=== PATIENT | female | born 1940 ===

== ENCOUNTER 2022-04-27 18:27 | Observation (INO) ==
--- NOTE | 2022-04-27 18:44 | Emergency Department Note ---
Abdominal Pain HPI General Chief Complaint: Abdominal Pain Stated Complaint: abdominal pain Time Seen by Provider: 04/27/22 18:38 Source: patient Mode of arrival: ambulatory Limitations: no limitations History of Present Illness HPI Narrative: Narrative: Patient is an 81-year-old female who comes into the emergency department today with continuation of pain that she describes as a stabbing sensation in the left lower quadrant of her abdomen. Patient reports that the pain started approximately 48 hours ago and has slowly increased in intensity. She was seen here in the emergency department yesterday morning. The patient states that she was told had a viral respiratory infection was discharged home. She did not have imaging on her abdomen. She had labs that did not show any leukocytosis. Her [id number] glucose was 210. Her renal function, liver function test and urinalysis were rather unremarkable. She was given IV Zofran, IV fentanyl, and IV Toradol and was feeling much better and therefore did not proceed with the CT. Dr. Colon did not feel that this was warranted and patient was discharged home with a prescription of of Levsin and ondansetron. Related Data Home Medications Medication Instructions Recorded Confirmed cholecalciferol (vitamin D3) 125 See Rx Instructions PO .COMPLEX 08/25/19 04/22/22 mcg (5,000 unit) capsule cranberry extract 2 tab PO QDAY 08/25/19 04/22/22 acetaminophen 500 mg PO PRN PRN PAIN 09/08/19 04/22/22 PreserVision AREDS 1 tab PO BID 01/15/21 04/22/22 Previous Rx's Medication Instructions Recorded furosemide 20 mg tablet (Lasix) 20 mg PO QAM #30 tabs 04/10/21 potassium chloride 10 mEq 10 meq PO QDAY #30 tabs 04/10/21 tablet,extended release incontinence pad, liner, disp #200 ea 07/17/21 methimazole 10 mg tablet 5 mg PO QDAY #90 tabs 11/08/21 rosuvastatin 20 mg tablet 20 mg PO QDAY #90 tabs 12/03/21 pantoprazole 40 mg tablet,delayed 40 mg PO QDAY #90 tabs 12/07/21 release apixaban 2.5 mg tablet (Eliquis) 2.5 mg PO BID #180 tabs 01/09/22 methenamine hippurate 1 gram tablet 1 g PO HS #90 tabs 01/09/22 metoprolol tartrate 25 mg tablet 25 mg PO BID #180 tabs 01/09/22 metformin 500 mg tablet 500 mg PO BID #180 tabs 01/14/22 lisinopril 20 mg tablet 20 mg PO BID #180 tabs 01/18/22 ciprofloxacin 0.3 %-dexamethasone 4 drp otic (ear) BID 7 days #7.5 mL 04/22/22 0.1 % ear drops,suspension (Ciprodex) memantine 5 mg tablet 5 mg PO QAM #90 tabs 04/22/22 hyoscyamine sulfate 0.125 mg 0.125 mg PO QID PRN dyspepsia #20 04/26/22 tablet (Levsin) tabs ondansetron 4 mg disintegrating 4 mg PO Q6H PRN nausea and 04/26/22 tablet vomiting #20 tabs Allergies Allergy/AdvReac Type Severity Reaction Status Date / Time lidocaine Allergy Intermediate itch Verified 04/22/22 09:19 Penicillins Allergy Unknown unknown Verified 04/22/22 09:19 Sulfa (Sulfonamide Allergy Unknown Nausea Verified 04/22/22 09:19 Antibiotics) Review of Systems ROS ROS Narrative: Narrative: All systems ED: reviewed and negative except as stated. [facility] Narrative Patient History Narrative: Narrative: Medical/Surgical/Family History All Active Problems (Updated 04/27/22 @ 21:57 by JUAN Phelps) Urinary tract infection (Chronic) Acid reflux (Chronic) Arthritis (Chronic) History of blood clots (Chronic) Depression (Chronic) Diabetes mellitus, type II (Chronic) Gout (Chronic) Gallbladder problem (Chronic) Heart trouble (Chronic) High blood pressure (Chronic) Insomnia (Chronic) Joint pain (Chronic) Stomach ulcer (Chronic) History of knee replacement (Chronic ~1995) History of tonsillectomy (Chronic ~1942) History of cholecystectomy (Chronic ~2000) History of shoulder surgery (Chronic ~1999) History of right hip replacement (Chronic ~2005) History of back surgery (Chronic ~1999) History of surgery (Chronic) Thyrotoxicosis (Acute) Paroxysmal atrial fibrillation (Acute) DVT (deep venous thrombosis) (Acute ~08/2011) History of left cataract surgery (Acute ~02/2016) skilled nursing current use of anticoagulant (Acute) Hypertensive heart and chronic kidney disease with heart failure and stage 1 through stage 4 chronic kidney disease, or chronic kidney disease (Acute) Chronic systolic (congestive) heart failure (Acute) Chronic kidney disease, stage 3 (Acute) Nonexudative age-related macular degeneration, bilateral, stage unspecified (Acute) Other polyosteoarthritis (Acute) Adjustment disorder with depressed mood (Acute) Familial hypercholesterolemia (Acute) Repeated falls (Acute) Type 2 diabetes mellitus with diabetic polyneuropathy (Acute) Frequency of micturition (Acute) Abnormal weight loss (Acute) skilled nursing (current) use of oral hypoglycemic drugs (Acute) Patient's noncompliance with other medical treatment and regimen (Acute) Essential hypertension, benign (Acute) Other intra-abdominal and pelvic swelling, mass and lump (Acute) 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 (Acute) Other disorders of retroperitoneum (Acute) Unspecified ovarian cyst, right side (Acute) Major depressive disorder, recurrent, mild (Acute) Dry senile macular degeneration (Acute) Other seborrheic dermatitis (Acute) Recurrent UTI (urinary tract infection) (Acute) Headache (Acute) Osteoarthrosis involving multiple sites (Acute) Right hip pain (Acute) Left ankle effusion (Acute) Screening due (Acute) Screening declined by patient (Acute) HLD (hyperlipidemia) (Acute) RUQ abdominal pain (Acute) Excessive cerumen in both ear canals (Acute) Hip pain, right (Acute) Contusion of hip, right (Acute) Duodenal ulcer (Acute) Thrush (Acute) Cellulitis and abscess of foot (Acute) Hypertrophic toenail (Acute) Polyuria (Acute) Chronic UTI (Acute) Overactive bladder (Acute) Urinary incontinence (Acute) Bronchitis (Acute) Memory loss (Acute) Right otitis externa (Acute) Abdominal pain (Acute) Hypertensive crisis (Acute) Left ureteral stone (Acute) Left flank pain (Acute) Bilateral hydronephrosis (Acute) Urinary retention (Acute) Acute on chronic renal failure (Acute) Urolithiasis (Acute) Acute and chronic respiratory failure (Acute) Acute urinary retention (Acute) Medical History Abnormal weight loss Acid reflux Adjustment disorder with depressed mood Arthritis Chronic kidney disease, stage 3 Chronic systolic (congestive) heart failure Depression Diabetes mellitus, type II Dry senile macular degeneration DVT (deep venous thrombosis) (~08/2011) Essential hypertension, benign Familial hypercholesterolemia Frequency of micturition Gallbladder problem Gout Headache Heart trouble High blood pressure History of blood clots leg Hypertensive heart and chronic kidney disease with heart failure and stage 1 through stage 4 chronic kidney disease, or chronic kidney disease Hypertrophic toenail Insomnia Joint pain skilled nursing (current) 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 Major depressive disorder, recurrent, 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, bilateral, stage unspecified Osteoarthrosis involving multiple sites Other disorders of retroperitoneum Other intra-abdominal and pelvic swelling, mass and lump Other polyosteoarthritis Other seborrheic dermatitis Paroxysmal atrial fibrillation Patient's noncompliance with other medical treatment and regimen Recurrent UTI (urinary tract infection) Repeated falls Right hip pain Stomach ulcer Thyrotoxicosis Type 2 diabetes mellitus with diabetic polyneuropathy Unspecified ovarian cyst, right side Surgical History History of back surgery (~1999) x3 cages History of cholecystectomy (~2000) History of knee replacement (~1995) History of left cataract surgery (~02/2016) History of right hip replacement (~2005) History of shoulder surgery (~1999) History of surgery apron removal of 28 lbs from a 160 lbs weight loss History of tonsillectomy (~1943) Family History Father Arthritis Aunt Cancer Mother Debo Gehrig's disease Social History Smoking Status: Never smoker Alcohol Intake Frequency: does not drink Substance Use: does not use Exam Narrative Narrative: Narrative: General Limitations: no limitations General appearance: Present alert and in no apparent distress Eye Eye: Present normal appearance; Absent scleral icterus ENT ENT: Present normal oropharynx and mucous membranes moist Chest Chest: Present symmetric chest wall rise Respiratory Respiratory: Present normal lung sounds bilaterally; Absent respiratory distress, rales/crackles, wheezes or accessory muscle use Cardiovascular Cardiovascular: Present regular rate, normal rhythm and normal heart sounds Adbominal Abdominal: Present soft, tenderness (Moderate tenderness with palpation in the left lower quadrant. ) and normal bowel sounds; Absent distention, rebound, rigidity, mass or hernia Extremities Extremities: Present normal inspection and normal capillary refill Neurological Neurological: Present alert and oriented X3 Skin Skin: Present warm (WNL), dry and normal color Course Vital Signs Vital signs: Vital Signs Temperature 97.1 F 04/27/22 18:28 Pulse Rate 71 04/27/22 18:28 Respiratory Rate 16 04/27/22 18:28 Blood Pressure 229/90 04/27/22 18:28 Pulse Oximetry (%) 96 04/27/22 18:28 Oxygen Delivery Method Room Air 04/27/22 18:28 Temperature 98.6 F 04/27/22 19:18 Pulse Rate 88 04/27/22 20:01 Respiratory Rate 16 04/27/22 18:28 Blood Pressure 234/92 04/27/22 20:01 Pulse Oximetry (%) 94 04/27/22 20:01 Oxygen Delivery Method Room Air 04/27/22 19:53 MDM MDM Narrative Medical decision making narrative: Narrative: Patient is an 81-year-old female who returned to the emergency department today with worsening left lower quadrant abdominal pain. She was seen in the emergency department yesterday. Repeated CBC, [id number] chemistry panel, urine dipstick, hepatic panel. Her renal function has changed and today her creatinine increased to 2.3 with BUN of 24. This may be related to dehydration, and she was given 1 L of IV normal saline with a repeat [id number] creatinine was ordered and shows a creatinine of 2.1 with BUN 23. The radiologist did not want to proceed with contrast today and reports that he would be able to CT abdomen pelvis without contrast to evaluate for potential diverticulitis, urolithiasis, SBO. Patient's urine dipstick shows large amount of blood, large leukocytes, and 1+ protein. Her specific gravity 1.020. This does not particularly like it is infected urine and may be be not a clean-catch specimen today. Urine was sent for culture. Patient was given 0.5 mg IV Dilaudid for pain, 4 mg of ondansetron for nausea, and 1 L of IV normal saline for hydration today. Patient CBC does not show any leukocytosis or anemia. Her blood pressure is elevated 230s over 100 and was sustained. Proceed with 20 mg of IV hydralazine today for her hypertension. Patient's repeat blood pressure was 147/81 with pulse of 90. Patient did have an episode of vomiting after receiving the 4 mg of IV ondansetron today. She was given 5 mg of IV Reglan as she continued to have the nausea with 1 episode of vomiting of yellow emesis today. This did help with her nausea some. Patient's CT abdomen pelvis without IV contrast preliminary report today shows the bladder is markedly distended. There is mild bilateral hydroureteronephrosi s secondary to distended urinary bladder. There are benign bladder diverticula. A prevoid bladder scan was done today and that reveals 890 cc of urine. Postvoid bladder scan today shows 900 after she had voided approximately 100 mL of urine. The CT scan also identifies the left distal ureter at the level of the UVJ contains layering calculi. The UVJ calculus measures 4 x 9 mm and may be parti ally obstructing. Patient was still having pain today and proceeded with 15 mg of IV Toradol which helped reduce patient's pain down to a 5 out of 10 on a 0-10 numerical pain scale. Was able to consult today with Dr. Mesa who is on-call for urology today. Dr. Mesa recommended proceeding with Lnog catheter and he was able to review imaging today of the CT scan. Dr. Mesa reports that patient has a very large right ovarian cyst that appears to be enlarged from prior imaging and this may be related to patient's bladder distention rather than urine in the bladder. The Long catheter was placed and had small amount of urine that was slightly draining but did not have large amount of urine to the BSU today. Dr. Mesa felt that the best plan for this patient would be to admit today to [facility]. Dr. Mesa was able to speak with hospitalist, Dr. Hanna and then Dr. Mesa return phone call to me indicating that Dr. Hanna would consult with patient by Dr. Mesa would be admitting the patient today and anticipate going to the OR tomorrow morning at 9 AM. Patient will be n.p.o. today at midnight. Lab Data 04/27/22 19:10 Labs: Lab Results 04/27/22 04/27/22 04/27/22 Range/Units 18:52 19:10 19:10 WBC 10.4 (4.5-11.0) K/mcL RBC 4.74 (3.59-5.38) M/mcL Hgb 14.0 (11.2-15.7) g/dL Hct 43.1 (34.1-44.9) % POC Hct (36-48) MCV 90.9 (80.0-100.0) fL MCH 29.5 (26.0-34.0) pg MCHC 32.5 (31.0-36.0) g/dL RDW 13.9 (11.5-14.5) % Plt Count 143 (140-440) K/mcL MPV 12.8 H (8.8-12.5) fL Immature Gran % (Auto) 0.3 (0.0-0.5) % Neut % (Auto) 64.7 (38.0-78.0) % Lymph % (Auto) 17.1 (15.5-49.0) % [place] % (Auto) 6.8 (1.0-12.0) % Eos % (Auto) 10.4 H (0.0-7.0) % Baso % (Auto) 0.7 (0.0-2.0) % Lymph # (Auto) 1.77 (1.50-4.80) K/mcL [place] # (Auto) 0.71 (0.10-0.90) K/mcL Eos # (Auto) 1.08 H (0.00-0.70) K/mcL Baso # (Auto) 0.07 (0.00-0.30) K/mcL Immature Gran # 0.03 (0.00-0.05) K/mcl Absolute Neutrophils 6.71 (1.80-8.00) K/mcL POC Sodium (133-145) POC Potassium (3.3-5.1) POC Chloride (96-108) POC Total CO2 (22-30) POC BUN (6-20) POC Creatinine (0.6-1.2) POC Glucose (70-105) POC WB Ioniz Calcium (1.16-1.32) Total Bilirubin 0.8 (0.1-1.0) mg/dL Direct Bilirubin 0.2 (<0.3) mg/dL AST 19 (<32) U/L ALT 17 (<40) U/L Alkaline Phosphatase 92 (39-117) U/L Total Protein 6.6 (5.9-8.4) gm/dL Albumin 3.7 (3.2-5.2) gm/dL Globulin 2.9 (2.2-3.7) gm/dL Urine Color Straw Urine Appearance Hazy A (Clear) Urine pH 7.0 (5.0-9.0) Ur Specific [place] 1.008 (1.000-1.035) Urine Protein 30 A (Negative) mg/dL Urine Glucose (UA) Negative (Negative) mg/dL Urine Ketones Negative (Negative) mg/dL Urine Occult Blood >=1.0 A (Negative) mg/dL Urine Nitrate Negative (Negative) Urine Bilirubin Negative (Negative) mg/dL Urine Urobilinogen Negative mg/dL Ur Leukocyte Esterase 500 A (Negative) /uL Urine RBC > 182 H (0-1) /hpf Urine WBC 53 H (0-4) /hpf Ur Squamous Epith Cells 1 (0-4) /hpf Urine Bacteria None (0) /hpf Urine Mucus Few A (None) /hpf Ur Culture Indicated? yes 04/27/22 04/27/22 04/27/22 Range/Units 19:15 20:43 20:47 WBC (4.5-11.0) K/mcL RBC (3.59-5.38) M/mcL Hgb (11.2-15.7) g/dL Hct (34.1-44.9) % POC Hct 43.0 42.0 (36-48) MCV (80.0-100.0) fL MCH (26.0-34.0) pg MCHC (31.0-36.0) g/dL RDW (11.5-14.5) % Plt Count (140-440) K/mcL MPV (8.8-12.5) fL Immature Gran % (Auto) (0.0-0.5) % Neut % (Auto) (38.0-78.0) % Lymph % (Auto) (15.5-49.0) % [place] % (Auto) (1.0-12.0) % Eos % (Auto) (0.0-7.0) % Baso % (Auto) (0.0-2.0) % Lymph # (Auto) (1.50-4.80) K/mcL [place] # (Auto) (0.10-0.90) K/mcL Eos # (Auto) (0.00-0.70) K/mcL Baso # (Auto) (0.00-0.30) K/mcL Immature Gran # (0.00-0.05) K/mcl Absolute Neutrophils (1.80-8.00) K/mcL POC Sodium 138 140 (133-145) POC Potassium 4.2 3.8 (3.3-5.1) POC Chloride 101 104 (96-108) POC Total CO2 26.0 22.0 (22-30) POC BUN 24 H 23 H (6-20) POC Creatinine 2.3 H 2.0 H 2.1 H (0.6-1.2) POC Glucose 156 H 198 H (70-105) POC WB Ioniz Calcium 1.12 L 1.12 L (1.16-1.32) Total Bilirubin (0.1-1.0) mg/dL Direct Bilirubin (<0.3) mg/dL AST (<32) U/L ALT (<40) U/L Alkaline Phosphatase (39-117) U/L Total Protein (5.9-8.4) gm/dL Albumin (3.2-5.2) gm/dL Globulin (2.2-3.7) gm/dL Urine Color Urine Appearance (Clear) Urine pH (5.0-9.0) Ur Specific [place] (1.000-1.035) Urine Protein (Negative) mg/dL Urine Glucose (UA) (Negative) mg/dL Urine Ketones (Negative) mg/dL Urine Occult Blood (Negative) mg/dL Urine Nitrate (Negative) Urine Bilirubin (Negative) mg/dL Urine Urobilinogen mg/dL Ur Leukocyte Esterase (Negative) /uL Urine RBC (0-1) /hpf Urine WBC (0-4) /hpf Ur Squamous Epith Cells (0-4) /hpf Urine Bacteria (0) /hpf Urine Mucus (None) /hpf Ur Culture Indicated? ED POC Tests ED POC Tests: JC - Influenza A Negative JC - Influenza B Negative JC - SARS Antigen Negative Discharge Plan Patient/Caregiver Discharge Instructions Pt seen by CRYPTOLOGIST/PA only: No Clinical Impression: Urolithiasis, Acute and chronic respiratory failure, Acute urinary retention Patient Disposition: Xfer As Outpt/Obs ([facility]) Follow up with: Jacob Jacobs DO [Primary Care Provider] - Prescriptions: No Action furosemide [Lasix] 20 mg tablet 20 mg PO QAM Qty: 30 0RF potassium chloride 10 mEq tablet extended release 10 meq PO QDAY Qty: 30 0RF methimazole 10 mg tablet 5 mg PO QDAY Qty: 90 1RF rosuvastatin 20 mg tablet 20 mg PO QDAY Qty: 90 1RF pantoprazole 40 mg tablet,delayed release (DR/EC) 40 mg PO QDAY Qty: 90 3RF Eliquis 2.5 mg tablet 2.5 mg PO BID Qty: 180 1RF metoprolol tartrate 25 mg tablet 25 mg PO BID Qty: 180 1RF methenamine hippurate 1 gram tablet 1 g PO HS Qty: 90 1RF metformin 500 mg tablet 500 mg PO BID Qty: 180 1RF lisinopril 20 mg tablet 20 mg PO BID Qty: 180 1RF acetaminophen 500 mg PO PRN PRN (Reason: PAIN) cholecalciferol (vitamin D3) 125 mcg (5,000 unit) capsule See Rx Instructions PO .COMPLEX Rx Instructions: PO; cranberry extract 2 tab PO QDAY (DME) incontinence pad, liner, disp Pad See Rx Instructions .Route Qty: 200 3RF Rx Instructions: As directed ciprofloxacin-dexamethasone [Ciprodex] 0.3-0.1 % drops,suspension 4 drp otic (ear) BID 7 Days Qty: 7.5 0RF memantine 5 mg tablet 5 mg PO QAM Qty: 90 3RF PreserVision AREDS 1 tab PO BID hyoscyamine sulfate [Levsin] 0.125 mg tablet 0.125 mg PO QID PRN (Reason: dyspepsia) Qty: 20 0RF ondansetron 4 mg tablet,disintegrating 4 mg PO Q6H PRN (Reason: nausea and vomiting) Qty: 20 0RF
[2022-04-27] MEDS ORDERED: HYDROmorphone 0.5 MG/0.5 ML SYRINGE IV ONE (19:15)
[2022-04-27 19:20] LABS: POC Calcium, Ionized 1.12 (1.16-1.32); POC Creatinine 2.3 (0.6-1.2); POC Potassium 4.2 (3.3-5.1)
[2022-04-27] MEDS ORDERED: 0.9 % SODIUM CHLORIDE 1,000 ML IV ONE (19:21)
[2022-04-27] MEDS ORDERED: ONDANSETRON 4 MG/2 ML VIAL IV ONE (19:25)
[2022-04-27] MEDS ORDERED: hydrALAZINE 20 MG/ML VIAL IV ONE (19:53)
[2022-04-27 20:03] LABS: Basophils # (Auto) 0.07 K/mcL (0.00-0.30); Basophils % (Auto) 0.7 % (0.0-2.0); Eosinophils # (Auto) 1.08 K/mcL (0.00-0.70); Eosinophils % (Auto) 10.4 % (0.0-7.0); Hematocrit 43.1 % (34.1-44.9); Lymphocytes # (Auto) 1.77 K/mcL (1.50-4.80); Lymphocytes % (Auto) 17.1 % (15.5-49.0); Mean Cell Volume 90.9 fL (80.0-100.0); Mean Corpuscular HGB Conc 32.5 g/dL (31.0-36.0); Mean Platelet Volume 12.8 fL (8.8-12.5); Monocytes # (Auto) 0.71 K/mcL (0.10-0.90); Monocytes % (Auto) 6.8 % (1.0-12.0); Neutrophils % (Auto) 64.7 % (38.0-78.0); Platelet Count 143 K/mcL (140-440); RBC 4.74 M/mcL (3.59-5.38); Red Cell Distribution Width 13.9 % (11.5-14.5); WBC 10.4 K/mcL (4.5-11.0)
[2022-04-27 20:19] LABS: ALT/SGPT 17 U/L (<40); AST/SGOT 19 U/L (<32); Albumin 3.7 gm/dL (3.2-5.2); Alkaline Phosphatase 92 U/L (39-117); Bilirubin,Direct 0.2 mg/dL (<0.3); Bilirubin,Total 0.8 mg/dL (0.1-1.0); Globulin 2.9 gm/dL (2.2-3.7)
[2022-04-27] MEDS ORDERED: METOCLOPRAMIDE 10 MG/2 ML VIAL IV ONE (20:24)
[2022-04-27 20:32] LABS: Appearance,Urine HAZY (Clear); Bilirubin,Urine Negative (Negative); Color,Urine STRAW; Culture Indicated,Urine yes; Glucose,Urine (UA) Negative (Negative); Ketones,Urine Negative (Negative); Leukocyte Esterase,Urine 500 /uL (Negative); Mucus,Urine FEW /hpf; Nitrate,Urine Negative (Negative); Protein,Urine 30 mg/dL (Negative); Specific Gravity,Urine 1.008 (1.000-1.035); Urine Blood >=1.0 mg/dL (Negative); Urine RBC > 182 /hpf (0-1); Urine Squamous Epithelial Cell 1 /hpf (0-4); Urine WBC 53 /hpf (0-4); Urobilinogen,Urine Negative
[2022-04-27] MEDS ORDERED: KETOROLAC 30 MG/ML VIAL IV ONE (20:47)
[2022-04-27 20:48] LABS: POC Calcium, Ionized 1.12 (1.16-1.32); POC Potassium 3.8 (3.3-5.1)
[2022-04-27] MEDS ORDERED: MAGNESIUM HYDROXIDE 30 ML ORAL.SUSP PO PRN (21:47)
[2022-04-27] MEDS ORDERED: ONDANSETRON 4 MG/2 ML VIAL IV PRN (21:47)
[2022-04-27] MEDS ORDERED: oxyCODONE/APAP 5/325MG TABLET PO PRN (21:47)
--- NOTE | 2022-04-27 21:53 | Internal Medicine Consult Note ---
HPI Date of Consult Consult Date: 04/28/22 Primary Care Provider: Jacob Jacobs DO Consult Narrative History of present illness: Virginia Stahl 81 year old female with a history of hypertension, type 2 diabetes mellitus, CKD stage 3, chronic systolic heart failure, paroxysmal atrial fibrillation, DVT per chart review, hyperthyroidism, depression, GERD, ovarial cysts presented to the ED for persistent lower abdominal pain and found to have a large ovarian cyst, distal left ureteral stones, and urinary retention as well as an acute kidney injury. Urology requested that hospital medicine consult for the patient's multiple medical comorbidities. I saw the patient after he Long catheter had been placed in the emergency department. The patient said that her abdominal pain which was in her left lower quadrant on presentation to the ED had resolved. We discussed the patient's medical comorbidities, she does endorse a history of lower extremity DVT which was probably unprovoked based on her description. Per review of the patient's prior medication list it appears the patient is on low-dose Eliquis. The patient is not familiar with her medications, she lives with her daughter and it sounds like she is mostly independent with her activities of daily living. Review of systems Constitutional: no fever, fatigue, or weight loss Eyes: no vision changes or pain Cardiovascular: no chest pain, no palpitations Respiratory: no cough or dyspnea Gastrointestinal: Resolved left lower quadrant abdominal pain, no nausea, vomiting, or diarrhea Genitourinary: Occasional urinary retention and incontinence Musculoskeletal: no arthralgia or myalgia Integumentary: no skin lesion or wound Neurological: no focal weakness or numbness Psychiatric: no anxiety or depression Physical exam Head: Atraumatic, normal inspection. Eyes: normal appearance, no scleral icterus. Neck: full ROM Respiratory: no respiratory distress. Cardiovascular: normal rate GI/Abdominal: soft, nontender, no guarding. : Indwelling Long catheter present. Extremities: full range of motion, nontender. Neurological: CN II-XII intact, intact motor, intact sensation. Psychiatric: normal mood. Skin: warm, normal color cc:: CC: PFSH PFSH All Active Problems Urinary tract infection (Chronic) Acid reflux (Chronic) Arthritis (Chronic) History of blood clots (Chronic) Depression (Chronic) Diabetes mellitus, type II (Chronic) Gout (Chronic) Gallbladder problem (Chronic) Heart trouble (Chronic) High blood pressure (Chronic) Insomnia (Chronic) Joint pain (Chronic) Stomach ulcer (Chronic) History of knee replacement (Chronic ~1995) History of tonsillectomy (Chronic ~194) History of cholecystectomy (Chronic ~2000) History of shoulder surgery (Chronic ~1999) History of right hip replacement (Chronic ~2005) History of back surgery (Chronic ~1999) History of surgery (Chronic) Thyrotoxicosis (Acute) Paroxysmal atrial fibrillation (Acute) DVT (deep venous thrombosis) (Acute ~08/2011) History of left cataract surgery (Acute ~02/2016) grape grower current use of anticoagulant (Acute) Hypertensive heart and chronic kidney disease with heart failure and stage 1 through stage 4 chronic kidney disease, or chronic kidney disease (Acute) Chronic systolic (congestive) heart failure (Acute) Chronic kidney disease, stage 3 (Acute) Nonexudative age-related macular degeneration, bilateral, stage unspecified (Acute) Other polyosteoarthritis (Acute) Adjustment disorder with depressed mood (Acute) Familial hypercholesterolemia (Acute) Repeated falls (Acute) Type 2 diabetes mellitus with diabetic polyneuropathy (Acute) Frequency of micturition (Acute) Abnormal weight loss (Acute) 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 (Acute) Patient's noncompliance with other medical treatment and regimen (Acute) Essential hypertension, benign (Acute) Other intra-abdominal and pelvic swelling, mass and lump (Acute) 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 (Acute) Other disorders of retroperitoneum (Acute) Unspecified ovarian cyst, right side (Acute) Major depressive disorder, recurrent, mild (Acute) Dry senile macular degeneration (Acute) Other seborrheic dermatitis (Acute) Recurrent UTI (urinary tract infection) (Acute) Headache (Acute) Osteoarthrosis involving multiple sites (Acute) Right hip pain (Acute) Left ankle effusion (Acute) Screening due (Acute) Screening declined by patient (Acute) HLD (hyperlipidemia) (Acute) RUQ abdominal pain (Acute) Excessive cerumen in both ear canals (Acute) Hip pain, right (Acute) Contusion of hip, right (Acute) Duodenal ulcer (Acute) Thrush (Acute) Cellulitis and abscess of foot (Acute) Hypertrophic toenail (Acute) Polyuria (Acute) Chronic UTI (Acute) Overactive bladder (Acute) Urinary incontinence (Acute) Bronchitis (Acute) Memory loss (Acute) Right otitis externa (Acute) Abdominal pain (Acute) Hypertensive crisis (Acute) Left ureteral stone (Acute) Left flank pain (Acute) Bilateral hydronephrosis (Acute) Urinary retention (Acute) Acute on chronic renal failure (Acute) Urolithiasis (Acute) Acute and chronic respiratory failure (Acute) Acute urinary retention (Acute) Medical History Abnormal weight loss Acid reflux Adjustment disorder with depressed mood Arthritis Chronic kidney disease, stage 3 Chronic systolic (congestive) heart failure Depression Diabetes mellitus, type II Dry senile macular degeneration DVT (deep venous thrombosis) (~08/2011) Essential hypertension, benign Familial hypercholesterolemia Frequency of micturition Gallbladder problem Gout Headache Heart trouble High blood pressure History of blood clots leg Hypertensive heart and chronic kidney disease with heart failure and stage 1 through stage 4 chronic kidney disease, or chronic kidney disease Hypertrophic toenail Insomnia Joint pain 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 [facility] current use of anticoagulant Major depressive disorder, recurrent, 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, bilateral, stage unspecified Osteoarthrosis involving multiple sites Other disorders of retroperitoneum Other intra-abdominal and pelvic swelling, mass and lump Other polyosteoarthritis Other seborrheic dermatitis Paroxysmal atrial fibrillation Patient's noncompliance with other medical treatment and regimen Recurrent UTI (urinary tract infection) Repeated falls Right hip pain Stomach ulcer Thyrotoxicosis Type 2 diabetes mellitus with diabetic polyneuropathy Unspecified ovarian cyst, right side Surgical History History of back surgery (~1999) x3 cages History of cholecystectomy (~2000) History of knee replacement (~1995) History of left cataract surgery (~02/2016) History of right hip replacement (~2005) History of shoulder surgery (~1999) History of surgery apron removal of 28 lbs from a 160 lbs weight loss History of tonsillectomy (~1943) Family History Father Arthritis Aunt Cancer Mother Debo Gehrig's disease Social History marital status: occupational status: retired smoking status: Never smoker alcohol intake frequency: does not drink substance use type: does not use MEDS/ALLERGIES Home Medications and Allergies Home Medications Medication Instructions Recorded Confirmed Type cholecalciferol (vitamin D3) 125 See Rx Instructions PO .COMPLEX 08/25/19 04/22/22 History mcg (5,000 unit) capsule cranberry extract 2 tab PO QDAY 08/25/19 04/22/22 History acetaminophen 500 mg PO PRN PRN PAIN 09/08/19 04/22/22 History PreserVision AREDS 1 tab PO BID 01/15/21 04/22/22 History furosemide 20 mg tablet (Lasix) 20 mg PO QAM #30 tabs 04/10/21 04/22/22 Rx potassium chloride 10 mEq 10 meq PO QDAY #30 tabs 04/10/21 04/22/22 Rx tablet,extended release incontinence pad, liner, disp #200 ea 07/17/21 04/22/22 Rx methimazole 10 mg tablet 5 mg PO QDAY #90 tabs 11/08/21 04/22/22 Rx rosuvastatin 20 mg tablet 20 mg PO QDAY #90 tabs 12/03/21 04/22/22 Rx pantoprazole 40 mg tablet,delayed 40 mg PO QDAY #90 tabs 12/07/21 04/22/22 Rx release apixaban 2.5 mg tablet (Eliquis) 2.5 mg PO BID #180 tabs 01/09/22 04/22/22 Rx methenamine hippurate 1 gram tablet 1 g PO HS #90 tabs 01/09/22 04/22/22 Rx metoprolol tartrate 25 mg tablet 25 mg PO BID #180 tabs 01/09/22 04/22/22 Rx metformin 500 mg tablet 500 mg PO BID #180 tabs 01/14/22 04/22/22 Rx lisinopril 20 mg tablet 20 mg PO BID #180 tabs 01/18/22 04/22/22 Rx ciprofloxacin 0.3 %-dexamethasone 4 drp otic (ear) BID 7 days #7.5 mL 04/22/22 04/22/22 Rx 0.1 % ear drops,suspension (Ciprodex) memantine 5 mg tablet 5 mg PO QAM #90 tabs 04/22/22 04/22/22 Rx hyoscyamine sulfate 0.125 mg 0.125 mg PO QID PRN dyspepsia #20 04/26/22 Rx tablet (Levsin) tabs ondansetron 4 mg disintegrating 4 mg PO Q6H PRN nausea and 04/26/22 Rx tablet vomiting #20 tabs Allergies Allergy/AdvReac Type Severity Reaction Status Date / Time Penicillins Allergy Unknown unknown Verified 04/22/22 09:19 lidocaine AdvReac Mild Itching Verified 04/28/22 07:32 Sulfa (Sulfonamide AdvReac Mild Nausea Verified 04/28/22 07:32 Antibiotics) EXAM Constitutional Vitals: Temp Pulse Resp BP Pulse Ox O2 Del Method 98.6 F 91 H 16 147/81 92 Room Air 04/27/22 19:18 04/27/22 21:41 04/27/22 18:28 04/27/22 20:34 04/27/22 21:41 04/27/22 19:53 DATA Data Completed and Pending Labs: Labs from last 24 hours 04/27/22 04/27/22 04/27/22 20:47 20:43 19:15 WBC RBC Hgb Hct POC Hct 42.0 43.0 MCV MCH MCHC RDW Plt Count MPV Immature Gran % (Auto) Neut % (Auto) Lymph % (Auto) Mclean % (Auto) Eos % (Auto) Baso % (Auto) Lymph # (Auto) Mclean # (Auto) Eos # (Auto) Baso # (Auto) Immature Gran # Absolute Neutrophils POC Sodium 140 138 POC Potassium 3.8 4.2 POC Chloride 104 101 POC Total CO2 22.0 26.0 POC BUN 23 H 24 H POC Creatinine 2.1 H 2.0 H 2.3 H POC Glucose 198 H 156 H POC WB Ioniz Calcium 1.12 L 1.12 L Total Bilirubin Direct Bilirubin AST ALT Alkaline Phosphatase Total Protein Albumin Globulin Urine Color Urine Appearance Urine pH Ur Specific [place] Urine Protein Urine Glucose (UA) Urine Ketones Urine Occult Blood Urine Nitrate Urine Bilirubin Urine Urobilinogen Ur Leukocyte Esterase Urine RBC Urine WBC Ur Squamous Epith Cells Urine Bacteria Urine Mucus Ur Culture Indicated? 04/27/22 04/27/22 04/27/22 19:10 19:10 18:52 WBC 10.4 RBC 4.74 Hgb 14.0 Hct 43.1 POC Hct MCV 90.9 MCH 29.5 MCHC 32.5 RDW 13.9 Plt Count 143 MPV 12.8 H Immature Gran % (Auto) 0.3 Neut % (Auto) 64.7 Lymph % (Auto) 17.1 Mclean % (Auto) 6.8 Eos % (Auto) 10.4 H Baso % (Auto) 0.7 Lymph # (Auto) 1.77 Mclean # (Auto) 0.71 Eos # (Auto) 1.08 H Baso # (Auto) 0.07 Immature Gran # 0.03 Absolute Neutrophils 6.71 POC Sodium POC Potassium POC Chloride POC Total CO2 POC BUN POC Creatinine POC Glucose POC WB Ioniz Calcium Total Bilirubin 0.8 Direct Bilirubin 0.2 AST 19 ALT 17 Alkaline Phosphatase 92 Total Protein 6.6 Albumin 3.7 Globulin 2.9 Urine Color Straw Urine Appearance Hazy A Urine pH 7.0 Ur Specific [place] 1.008 Urine Protein 30 A Urine Glucose (UA) Negative Urine Ketones Negative Urine Occult Blood >=1.0 A Urine Nitrate Negative Urine Bilirubin Negative Urine Urobilinogen Negative Ur Leukocyte Esterase 500 A Urine RBC > 182 H Urine WBC 53 H Ur Squamous Epith Cells 1 Urine Bacteria None Urine Mucus Few A Ur Culture Indicated? yes A/P Narrative A/P Narrative: Assessment: 81 year old female with a history of hypertension, type 2 diabetes mellitus, CKD stage 3, chronic systolic heart failure, paroxysmal atrial fibrillation, DVT per chart review, hyperthyroidism, depression, GERD, ovarial cysts presented to the ED for persistent lower abdominal pain and found to have a large ovarian cyst, distal left ureteral stones, and urinary retention as well as an acute kidney injury. Urology requested that hospital medicine consult for the patient's multiple medical comorbidities. #Left lower abdominal pain likely due to either left distal ureteral stones versus less likely large ovarian/mesenteric cyst (interval enlargement since 2020) -Pain resolved after Long catheter placed in the ED. #Acute on chronic kidney disease stage 3 injury #Left moderate hydronephrosis and hydroureter #Hypertension #Type 2 diabetes mellitus #Paroxysmal atrial fibrillation #Chronic systolic heart failure #Coronary artery disease #Hyperlipidemia #History of DVT #History of hyperthyroidism #Depression #GERD Plan -Urology admitting the patient, planning for procedures in the morning. -Hospital medicine consulted for the patient's medical comorbidities. -Long catheter placement in the ED. -IV fluid for RIMA, monitor renal function and urine output. -Monitor volume status closely given history heart failure. -Start Norvasc 5 mg daily, hold EVANGELISTA-I for now for RIMA. -Labetalol and Hydralazine for SBP>190 or DBP>100. -Scheduled tylenol IV and prn opioids, avoid NSAIDs due to renal failure. -Correction humalog SSI, start at low dose. -Home medication reconciliation w/ pharmacy, continue essential medications. -NPO for now pending possible procedures. -DVT prophylaxis: Eliquis (if taking for afib), otherwise heparin SQ. -CODE STATUS: DNR/DNI Time Spent With Patient Time: Total time spent is greater than 50% in coordination of care (as documented) at patient's floor/unit and/or counseling patient:
--- NOTE | 2022-04-27 21:58 | Urology History & Physical ---
HPI History of Present Illness Patient information: Note initiated : 04/27/22 at 9:57 pm Service Date, if different from initiated Date: [] Patient: Virginia Stahl 81 y/o F admitted on for abdominal pain. Chief Complaint: [Left flank pain, left ureteral stone, bilateral hydronephrosis] Chief complaint: Left flank pain, left ureteral stone, bilateral hydronephrosis History of present illness: Virginia is an 81-year-old woman with a long history of abdominal pain. She initially presented to the emergency room yesterday with complaints of abdominal and the new onset of left flank pain. She was evaluated and discharged to home after being told that she had a viral GI infection. She represented to the emergency department today with similar complaints. Her abdominal and left flank pain persisted. Today her renal function appears to be worse. No imaging was obtained yesterday. A noncontrast CT scan of the abdomen and pelvis was obtained today which I personally reviewed. It shows an extremely large right ovarian cyst filling most of the lower abdomen. It measures at least 15 cm in size and has enlarged over the past couple of years. There was mild bilateral hydronephrosis and a 4 x 9 mm stone at the left ureterovesical junction. In addition to the left UVJ stone she also has left renal stones. These are nonobstructive. I reviewed her older films (both CT and pelvic ultrasound) and she has had a right ovarian cyst for quite a long time this has enlarged significantly. She reports that this cyst has been present for years and is known about. Has been worked up for cancer and she was told she did not have ovarian cancer. She denies any prior history of stones. She reports a history of chronic urinary tract infections with sepsis at one-point. For period time she was on chronic long-term antibiotics. She reports a remote history of a myocardial infarction. She has a history of paroxysmal atrial fibrillation for which she is anticoagulated with Eliquis. I was told that the patient was in urinary retention with a postvoid residual by bladder scan of over 900 mL. Upon my review of the films it appears that what the bladder scan picked up was the ovarian cyst rather than urinary retention. A Long catheter was placed and approximately 90 mL of urine were drained. Her daughter works in [employer] at our hospital. She appears to be otherwise stable. She does not have a significant infection and she is not septic. Review of Systems All systems: reviewed and no additional remarkable complaints except as stated Constitutional Constitutional: Present as per HPI Cardiovascular Cardiovascular: Present irregular heart rhythm Genitourinary Genitourinary: Present as per HPI, flank pain and urinary incontinence PFSH PFSH All Active Problems Urolithiasis (Acute) Acute and chronic respiratory failure (Acute) Acute urinary retention (Acute) Acute on chronic renal failure (Acute) Urinary retention (Acute) Bilateral hydronephrosis (Acute) Left flank pain (Acute) Left ureteral stone (Acute) Urinary tract infection (Chronic) Acid reflux (Chronic) Arthritis (Chronic) History of blood clots (Chronic) Depression (Chronic) Diabetes mellitus, type II (Chronic) Gout (Chronic) Gallbladder problem (Chronic) Heart trouble (Chronic) High blood pressure (Chronic) Insomnia (Chronic) Joint pain (Chronic) Stomach ulcer (Chronic) History of knee replacement (Chronic ~1995) History of tonsillectomy (Chronic ~1942) History of cholecystectomy (Chronic ~2000) History of shoulder surgery (Chronic ~1999) History of right hip replacement (Chronic ~2005) History of back surgery (Chronic ~1999) History of surgery (Chronic) Thyrotoxicosis (Acute) Paroxysmal atrial fibrillation (Acute) DVT (deep venous thrombosis) (Acute ~08/2011) History of left cataract surgery (Acute ~02/2016) 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) Hypertensive heart and chronic kidney disease with heart failure and stage 1 through stage 4 chronic kidney disease, or chronic kidney disease (Acute) Chronic systolic (congestive) heart failure (Acute) Chronic kidney disease, stage 3 (Acute) Nonexudative age-related macular degeneration, bilateral, stage unspecified (Acute) Other polyosteoarthritis (Acute) Adjustment disorder with depressed mood (Acute) Familial hypercholesterolemia (Acute) Repeated falls (Acute) Type 2 diabetes mellitus with diabetic polyneuropathy (Acute) Frequency of micturition (Acute) Abnormal weight loss (Acute) correction (current) use of oral hypoglycemic drugs (Acute) Patient's noncompliance with other medical treatment and regimen (Acute) Essential hypertension, benign (Acute) Other intra-abdominal and pelvic swelling, mass and lump (Acute) 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 (Acute) Other disorders of retroperitoneum (Acute) Unspecified ovarian cyst, right side (Acute) Major depressive disorder, recurrent, mild (Acute) Dry senile macular degeneration (Acute) Other seborrheic dermatitis (Acute) Recurrent UTI (urinary tract infection) (Acute) Headache (Acute) Osteoarthrosis involving multiple sites (Acute) Right hip pain (Acute) Left ankle effusion (Acute) Screening due (Acute) Screening declined by patient (Acute) HLD (hyperlipidemia) (Acute) RUQ abdominal pain (Acute) Excessive cerumen in both ear canals (Acute) Hip pain, right (Acute) Contusion of hip, right (Acute) Duodenal ulcer (Acute) Thrush (Acute) Cellulitis and abscess of foot (Acute) Hypertrophic toenail (Acute) Polyuria (Acute) Chronic UTI (Acute) Overactive bladder (Acute) Urinary incontinence (Acute) Bronchitis (Acute) Memory loss (Acute) Right otitis externa (Acute) Abdominal pain (Acute) Hypertensive crisis (Acute) Medical History Abnormal weight loss Acid reflux Adjustment disorder with depressed mood Arthritis Chronic kidney disease, stage 3 Chronic systolic (congestive) heart failure Depression Diabetes mellitus, type II Dry senile macular degeneration DVT (deep venous thrombosis) (~08/2011) Essential hypertension, benign Familial hypercholesterolemia Frequency of micturition Gallbladder problem Gout Headache Heart trouble High blood pressure History of blood clots leg Hypertensive heart and chronic kidney disease with heart failure and stage 1 through stage 4 chronic kidney disease, or chronic kidney disease Hypertrophic toenail Insomnia Joint pain 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 Major depressive disorder, recurrent, 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, bilateral, stage unspecified Osteoarthrosis involving multiple sites Other disorders of retroperitoneum Other intra-abdominal and pelvic swelling, mass and lump Other polyosteoarthritis Other seborrheic dermatitis Paroxysmal atrial fibrillation Patient's noncompliance with other medical treatment and regimen Recurrent UTI (urinary tract infection) Repeated falls Right hip pain Stomach ulcer Thyrotoxicosis Type 2 diabetes mellitus with diabetic polyneuropathy Unspecified ovarian cyst, right side Surgical History History of back surgery (~1999) x3 cages History of cholecystectomy (~2000) History of knee replacement (~1995) History of left cataract surgery (~02/2016) History of right hip replacement (~2005) History of shoulder surgery (~1999) History of surgery apron removal of 28 lbs from a 160 lbs weight loss History of tonsillectomy (~1943) Family History Father Arthritis Aunt Cancer Mother Debo Gehrig's disease Social History marital status: occupational status: retired smoking status: Never smoker alcohol intake frequency: does not drink substance use type: does not use MEDS/ALLERGIES Home Medications and Allergies Home Medications Medication Instructions Recorded Confirmed Type cholecalciferol (vitamin D3) 125 See Rx Instructions PO .COMPLEX 08/25/19 04/22/22 History mcg (5,000 unit) capsule cranberry extract 2 tab PO QDAY 08/25/19 04/22/22 History acetaminophen 500 mg PO PRN PRN PAIN 09/08/19 04/22/22 History PreserVision AREDS 1 tab PO BID 01/15/21 04/22/22 History furosemide 20 mg tablet (Lasix) 20 mg PO QAM #30 tabs 04/10/21 04/22/22 Rx potassium chloride 10 mEq 10 meq PO QDAY #30 tabs 04/10/21 04/22/22 Rx tablet,extended release incontinence pad, liner, disp #200 ea 07/17/21 04/22/22 Rx methimazole 10 mg tablet 5 mg PO QDAY #90 tabs 11/08/21 04/22/22 Rx rosuvastatin 20 mg tablet 20 mg PO QDAY #90 tabs 12/03/21 04/22/22 Rx pantoprazole 40 mg tablet,delayed 40 mg PO QDAY #90 tabs 12/07/21 04/22/22 Rx release apixaban 2.5 mg tablet (Eliquis) 2.5 mg PO BID #180 tabs 01/09/22 04/22/22 Rx methenamine hippurate 1 gram tablet 1 g PO HS #90 tabs 01/09/22 04/22/22 Rx metoprolol tartrate 25 mg tablet 25 mg PO BID #180 tabs 01/09/22 04/22/22 Rx metformin 500 mg tablet 500 mg PO BID #180 tabs 01/14/22 04/22/22 Rx lisinopril 20 mg tablet 20 mg PO BID #180 tabs 01/18/22 04/22/22 Rx ciprofloxacin 0.3 %-dexamethasone 4 drp otic (ear) BID 7 days #7.5 mL 04/22/22 04/22/22 Rx 0.1 % ear drops,suspension (Ciprodex) memantine 5 mg tablet 5 mg PO QAM #90 tabs 04/22/22 04/22/22 Rx hyoscyamine sulfate 0.125 mg 0.125 mg PO QID PRN dyspepsia #20 04/26/22 Rx tablet (Levsin) tabs ondansetron 4 mg disintegrating 4 mg PO Q6H PRN nausea and 04/26/22 Rx tablet vomiting #20 tabs Allergies Allergy/AdvReac Type Severity Reaction Status Date / Time Penicillins Allergy Unknown unknown Verified 04/22/22 09:19 lidocaine AdvReac Mild Itching Verified 04/28/22 07:32 Sulfa (Sulfonamide AdvReac Mild Nausea Verified 04/28/22 07:32 Antibiotics) Physical Examination Vital Signs Vital signs: Temp Pulse Resp BP Pulse Ox O2 Del Method 98.6 F 91 H 16 147/81 92 Room Air 04/27/22 19:18 04/27/22 21:41 04/27/22 18:28 04/27/22 20:34 04/27/22 21:41 04/27/22 19:53 General physical appearance General physical exam: well developed, well nourished, no distress and no pain Eyes Eye exam: PERRL Head Head exam IM: Present atraumatic, normal inspection and normocephalic Neck Neck exam: trachea midline Cardiovascular Cardiovascular exam IM: Present irregular rhythm Respiratory Respiratory exam: normal expansion, normal respiratory effort and clear to auscultation Abdomen Abdomen: Present soft and non tender Neurologic Neurologic: Present normal coordination and normal sensation Musculoskeletal Musculoskeletal: Present other (Cannot evaluate as lying in bed. 3) Psychiatric Psychiatric: Present oriented to time, oriented to person, oriented to place and speech is normal Results Labs 04/27/22 19:10 Labs: Abnormal lab results 04/27/22 04/27/22 04/27/22 Range/Units 18:52 19:10 19:15 MPV 12.8 H (8.8-12.5) fL Eos % (Auto) 10.4 H (0.0-7.0) % Eos # (Auto) 1.08 H (0.00-0.70) K/mcL POC BUN 24 H (6-20) POC Creatinine 2.3 H (0.6-1.2) POC Glucose 156 H (70-105) POC WB Ioniz Calcium 1.12 L (1.16-1.32) Urine Appearance Hazy A (Clear) Urine Protein 30 A (Negative) mg/dL Urine Occult Blood >=1.0 A (Negative) mg/dL Ur Leukocyte Esterase 500 A (Negative) /uL Urine RBC > 182 H (0-1) /hpf Urine WBC 53 H (0-4) /hpf Urine Mucus Few A (None) /hpf 04/27/22 04/27/22 Range/Units 20:43 20:47 MPV (8.8-12.5) fL Eos % (Auto) (0.0-7.0) % Eos # (Auto) (0.00-0.70) K/mcL POC BUN 23 H (6-20) POC Creatinine 2.0 H 2.1 H (0.6-1.2) POC Glucose 198 H (70-105) POC WB Ioniz Calcium 1.12 L (1.16-1.32) Urine Appearance (Clear) Urine Protein (Negative) mg/dL Urine Occult Blood (Negative) mg/dL Ur Leukocyte Esterase (Negative) /uL Urine RBC (0-1) /hpf Urine WBC (0-4) /hpf Urine Mucus (None) /hpf Diabetes panel 04/27/22 Range/Units 19:10 AST 19 (<32) U/L ALT 17 (<40) U/L Alkaline Phosphatase 92 (39-117) U/L Total Protein 6.6 (5.9-8.4) gm/dL Albumin 3.7 (3.2-5.2) gm/dL Calcium panel 04/27/22 Range/Units 19:10 Albumin 3.7 (3.2-5.2) gm/dL Adrenal panel 04/27/22 Range/Units 19:10 Total Bilirubin 0.8 (0.1-1.0) mg/dL AST 19 (<32) U/L ALT 17 (<40) U/L Alkaline Phosphatase 92 (39-117) U/L Total Protein 6.6 (5.9-8.4) gm/dL Albumin 3.7 (3.2-5.2) gm/dL All other labs normal. Imaging Chest x-ray: report reviewed and image reviewed CT scan - abdomen: image reviewed CT scan - pelvis: image reviewed US - pelvic: report reviewed and image reviewed EKG: image reviewed A/P Assessment and plan (1) Acute on chronic renal failure: Status: Acute (2) Acute urinary retention: Status: Acute (3) Bilateral hydronephrosis: Status: Acute (4) Left ureteral stone: Status: Acute (5) Left flank pain: Status: Acute (6) History of blood clots: Status: Chronic Comment: leg (7) Diabetes mellitus, type II: Status: Chronic (8) Heart trouble: Status: Chronic (9) High blood pressure: Status: Chronic (10) DVT (deep venous thrombosis): Status: Acute (11) correction current use of anticoagulant: Status: Acute (12) Hypertensive heart and chronic kidney disease with heart failure and stage 1 through stage 4 chronic kidney disease, or chronic kidney disease: Status: Acute (13) Unspecified ovarian cyst, right side: Status: Acute (14) Overactive bladder: Status: Acute (15) Urinary incontinence: Status: Acute Narrative A/P Narrative: Virginia is an 81-year-old woman who initially presented to the emergency room yesterday with complaints of abdominal and left flank pain. She was evaluated and discharged to home being told that she had a viral infection. She represented to the emergency department today with similar complaints. Her abdominal and left flank pain persisted. Today her renal function appears to be worse. No imaging was obtained yesterday. A noncontrast CT scan of the abdomen and pelvis was obtained today which I personally reviewed. It shows an extremely large right ovarian cyst filling most of the lower abdomen. There was mild bilateral hydronephrosis and a 4 x 9 mm stone at the left ureterovesical junction. In addition to the left UVJ stone she also has left renal stones. These are nonobstructive. I reviewed her older films (both CT and pelvic ultrasound) and she has had a right ovarian cyst for quite a long time this has enlarged significantly. She appears to be otherwise stable. She does not have a significant infection and she is not septic. I will admit the patient to the hospital overnight for observation with the hospitalist service to consult to help manage medical issues if necessary. I will keep her n.p.o. as of now. We plan to take the patient to the operating room tomorrow to treat the left ureterovesical junction stone. We discussed going to the operating room and under general anesthesia, as an outpatient, performing cystoscopy, left retrograde pyelogram, left ureteroscopy, left laser lithotripsy, left ureteral stone basketing, and left ureteral stent placement. I discussed the procedure with the patient. We discussed possible risks and side effects including, but not limited to: bleeding, infection, damage to the urethra and to the bladder, damage to the left ureter and left kidney, postoperative urgency and frequency, postoperative hematuria, incomplete treatment of the stone, the possible need for further treatment and/or surgery, small risks of heart attack, stroke and , and risks of anesthesia that the patient will discuss separately with the anesthesia provider prior to the procedure. The patient understands that at the time of the procedure we will place a left ureteral stent. I explained what this is and that it is a temporary device. This will need to be removed in the office approximately 1 week after definitive treatment of the stone. The patient understands the procedure and its associated risks. A signed consent form was obtained. I will hold her Elivelma tonight although will likely not make a difference for the procedure tomorrow. She has multiple other medical issues including paroxysmal atrial fibrillation for which she is anticoagulated. She also has a history of DVT she has a history of stage III-IV chronic kidney disease. She has acute on chronic renal failure. She has a history of heart and respiratory issues. She has a history of memory issues. It was initially thought that she might be in urinary retention however I did not believe that this was the case as I feel that what the bladder scanner picked up was actually the ovarian cyst that is seen on the CT rather than a significantly distended bladder. A Long catheter was, however, placed. Only 90 mL of urine were reportedly drained. Time Spent With Patient Time: Total time spent is greater than 50% in coordination of care (as documented) at patient's floor/unit and/or counseling patient:
[2022-04-27] MEDS ORDERED: 0.45 % SODIUM CHLORIDE 1,000 ML IV SCH (22:00)
[2022-04-27] MEDS ORDERED: DEXTROSE 50% 50 ML VIAL IV PRN (22:09)
[2022-04-27] MEDS ORDERED: DEXTROSE 31 GM ORAL.SUSP PO PRN (22:09)
[2022-04-27] MEDS ORDERED: hydrALAZINE 20 MG/ML VIAL IV PRN (22:09)
[2022-04-27] MEDS ORDERED: LABETALOL 5 MG/ML ML IV PRN (22:09)
[2022-04-27] MEDS ORDERED: amLODIPine 5 MG TABLET PO SCH (22:10)
[2022-04-27] MEDS ORDERED: oxyCODONE HCL 5 MG TABLET PO PRN (22:14)
[2022-04-27] MEDS ORDERED: HYDROmorphone 0.5 MG/0.5 ML SYRINGE IV PRN (22:14)
[2022-04-27 22:20] LABS: Blood Urea Nitrogen 23 mg/dL (8-23); Calcium 9.4 mg/dL (8.6-10.4); Carbon Dioxide 24 mmol/L (22-30); Chloride 98 mmol/L (96-108); Glomerular Filtration Rate 23; Glucose 152 mg/dL (70-105)
[2022-04-27] MEDS ORDERED: ACETAMINOPHEN 1,000 MG/100 ML BAG IV ONE (22:53)
[2022-04-27] MEDS ORDERED: cefTRIAXone 1 GM VIAL ONE (22:53)
[2022-04-27] MEDS ORDERED: amLODIPine 5 MG TABLET ONE (22:53)
[2022-04-27] MEDS: cefTRIAXone 1 GM VIAL IV ONE ×2 (22:55→23:21)
[2022-04-27] MEDS: 0.9 % SODIUM CHLORIDE 10 ML SYRINGE IV SCH (22:56)
[2022-04-27] MEDS: ACETAMINOPHEN 1,000 MG/100 ML BAG IV SCH (22:57)
--- NOTE | 2022-04-28 04:51 | XRay Report ---
CLINICAL INFORMATION: Preop COMPARISON: 02/05/2022 TECHNIQUE: PA and lateral views were obtained. FINDINGS: The heart size, mediastinum and pulmonary vessels are unremarkable. The lungs are clear. There are no effusions. IMPRESSION: Normal chest. Interpreted and Authenticated by: Jacob Cantu 04/28/22
[2022-04-28] MEDS ORDERED: ACETAMINOPHEN 1,000 MG/100 ML BAG IV ONE (05:19)
--- NOTE | 2022-04-28 05:41 | Cat Scan Report ---
CLINICAL INFORMATION: Left lower quadrant pain and nausea COMPARISON: Abdomen and pelvic CTs from 12/06/2005 and 09/20/2020 TECHNIQUE: 0.625 mm helical slices were obtained from the mid heart through the subtrochanteric regions. Following reconstruction, 2.5 mm sagittal, coronal and axial reformatted images were processed and reviewed at bone and soft tissue windows.The exam was performed using radiation dose optimization techniques including, but not limited to, automated exposure control, adjustment of the mA and/or kV according to patient size and use of iterative reconstruction technique. FINDINGS: The lung bases show subsegmental atelectasis in the left lower lobe. There are no effusions. The heart is moderately enlarged with very heavy calcification left main LAD and proximal circumflex coronary arteries. This may indicate occlusive or subocclusive stenosis.. Moderate chronic elevation left diaphragm again noted Abdominal images show the noncontrasted liver to be normal in size and attenuation without focal lesion. The gallbladder is surgically absent. Common bile duct is normal caliber at 6 mm. Scattered calcifications in the pancreatic parenchyma is seen as before with be compatible with remote history of pancreatitis. No evidence of active inflammation. 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 Noncontrast left adrenal gland, spleen and aorta are normal in size, configuration and attenuation without focal lesion. Both noncontrasted kidneys are normal and symmetric in size, position and attenuation: the right is 9.7 cm in length and the left is 10 cm in length. There are multiple (greater than six (nonobstructing stones within the left upper collecting system ranging up to 10 mm in the inferior calyx. On the right, there are approximately eight nonobstructing calculi ranging up to 6 mm in a superior calyx. A 23 mm hyperdense cyst, in the superior pole the right kidney, has maintained long-term stability. Other smaller cysts are also stable. Moderate left hydroureter/hydronephrosis due to two stones in the UVJ, 4 mm and 3 mm, respectively. There is actually a third 4 mm stone more proximally distal ureter bleeding on axial image 137. The right ureter and upper collecting system are unremarkable. Pelvic images show massive (15 cm) cyst in the supravesical region occupying most of the central false and true pelvis. It compresses the urinary bladder dome and restricts bladder capacity. It has increased from 13 cm on the 2020 exam. Hysterectomy changes noted. A 4.2 cm left adnexal cyst is stable and presumably of left ovarian origin. Right ovary not identified There are multiple sigmoid diverticuli, but no evidence of diverticulitis. The remaining large bowel, appendix region, small bowel and stomach are grossly normal. There is no free air, free fluid and no adenopathy. There is marked laxity of the left lateral abdominal wall resulting in protrusion of mesenteric contents no evidence of sergio hernia however. Multiple chronic compression fractures throughout the visualized lower thoracic spine upper lumbar spine with fusion changes at L3-4 L4-5 and extensive degeneration seen as before. Right total hip prostheses is unremarkable. Moderate degeneration seen in the left hip. IMPRESSION: 1. Two stones, 4 mm and 3 mm respectively in the left UVJ with a third 4 mm stone more proximally in the distal left ureter. They have resulted in moderate left hydroureter/hydronephrosis. This is likely reason for patient's symptoms. 2. Multiple nonobstructing stones in the upper collecting systems of both kidneys. 3. Massive (14.7 cm) cyst in the central false/true pelvis which markedly compresses the urinary bladder dome. This show slight increase in size in 2020. It is likely either mesenteric or ovarian origin. If patient has chronic urgency or other lower urinary tracts symptoms, she may benefit from cyst drainage 4. Sigmoid diverticulosis, but no evidence of diverticulitis. 5. Moderate chronic elevation left diaphragm-stable since exam over two years prior 2025 2020 6. Moderate cardiomegaly with extremely heavy calcific plaque in the left main, LAD and proximal circumflex coronary arteries. This may result in occlusive or subocclusive stenosis Interpreted and Authenticated by: Jacob Cantu 04/28/22
[2022-04-28] MEDS: 0.9 % SODIUM CHLORIDE 10 ML SYRINGE IV SCH (05:58)
[2022-04-28] MEDS: ACETAMINOPHEN 1,000 MG/100 ML BAG IV SCH (05:58)
[2022-04-28 06:49] LABS: Blood Urea Nitrogen 23 mg/dL (8-23); Calcium 8.1 mg/dL (8.6-10.4); Carbon Dioxide 25 mmol/L (22-30); Chloride 101 mmol/L (96-108); Glomerular Filtration Rate 32; Glucose 171 mg/dL (70-105)
[2022-04-28] MEDS ORDERED: cefTRIAXone 1 GM VIAL IV ONE (07:00)
[2022-04-28] MEDS: INSULIN LISPRO 1 UNIT/0.01 ML UNIT SQ SCH ×2 (08:35→11:47)
[2022-04-28] MEDS: metFORMIN 500 MG TABLET PO SCH ×2 (08:36→11:06)
[2022-04-28] MEDS: ATORVASTATIN 40 MG TABLET PO SCH ×2 (08:36→11:08)
[2022-04-28] MEDS: METHIMAZOLE 10 MG TABLET PO SCH ×2 (08:36→11:06)
[2022-04-28] MEDS: MEMANTINE 10 MG TABLET PO SCH ×2 (08:37→11:05)
[2022-04-28] MEDS ORDERED: IOVERSOL 20 ML VIAL IJ ONE (08:54)
[2022-04-28] MEDS ORDERED: LISINOPRIL 20 MG TABLET PO SCH (09:00)
[2022-04-28] MEDS ORDERED: CIPROFLOXACIN/DEXAMETH OTIC BOTTLE 7.5ML AU SCH (09:00)
[2022-04-28] MEDS ORDERED: PANTOPRAZOLE 40 MG TABLET PO SCH (09:00)
[2022-04-28] MEDS ORDERED: METOPROLOL TARTRATE 25 MG TABLET PO SCH (09:00)
[2022-04-28] MEDS ORDERED: IPRATROPIUM/ALBUTEROL 3 ML AMPUL.NEB NEB PRN ×2 (09:00→09:41)
[2022-04-28] MEDS ORDERED: SCOPOLAMINE 1 PATCH PATCH TOPICAL PRN (09:00)
[2022-04-28] MEDS ORDERED: fentaNYL 100 MCG/2 ML VIAL IV ONE (09:07)
[2022-04-28] MEDS ORDERED: ePHEDrine 50 MG/5 ML SYRINGE (ANEST) IV ONE (09:07)
[2022-04-28] MEDS ORDERED: MIDAZOLAM 2 MG/2 ML VIAL ONE (09:07)
[2022-04-28] MEDS ORDERED: PROPOFOL 200 MG/20 ML VIAL IV ONE (09:07)
[2022-04-28] MEDS ORDERED: ONDANSETRON 4 MG/2 ML VIAL IV PRN ×2 (09:41→09:59)
[2022-04-28] MEDS ORDERED: fentaNYL 100 MCG/2 ML VIAL IV PRN (09:41)
--- NOTE | 2022-04-28 09:57 | Operative Note ---
Brief Operative Note Date of procedure: 04/28/22 Pre-op diagnosis: Left ureteral and left renal stones Post-op diagnosis: other (The patient had passed the left ureteral stones which were in the bladder and left renal stones) Procedure: Cystoscopy, left retrograde pyelogram, left ureteroscopy, left laser lithotripsy, and left ureteral stent placement. Grafts/Implants: Yes (6 Cypriot by 24 cm left ureteral stent with no string) Anesthesia: GLMA Findings: Cystocele, numerous small stones within the bladder. No evidence of ureteral stones. 1 cm left renal stone. All treated. Complications: none Surgeon: Lavon Mesa Estimated blood loss (cc): 5 Specimens Removed/Pathology: other (Stone for analysis) Condition: stable Disposition: PACU Operative Note Operative Note: After obtaining informed consent from the patient, she was brought to the operating room was placed upon on the operating table. General anesthesia was provided. She was repositioned in a dorsolithotomy position was prepped and draped in the usual sterile fashion. Attention was directed to the urethral meatus where a 21 Cypriot cystoscope was passed per urethra into the bladder. The bladder was inspected and seen to be free of tumors and stones. There was evidence of a cystocele. Ureteral orifices were identified in the normal anatomic positions. There were numerous stones the largest being approximately 4 mm within the bladder. The left ureteral orifice is cannulated using a 5 Cypriot open-end ureteral catheter and a left retrograde pyelogram was performed. This did not reveal any evidence of ureteral stones and there was mild to moderate left hydronephrosis. The open ureteral catheter was removed and a 0.38 Cypriot sensor wire was passed through the left ureteral orifice and under fluoroscopic guidance in the left upper pole. A short semirigid ureteroscope was then passed per urethra into the bladder and alongside the wire into the left ureter as far as I could pass the scope which was almost the ureteropelvic junction. No stones were identified. The short semirigid ureteroscope was removed. Since we are here I decided we should try to treat the left renal stone seen on CT. I therefore placed a dual-lumen catheter over the wire. I placed a second 0.38 Cypriot extra-stiff wire through the second port of the dual-lumen catheter and under fluoroscopic guidance into the left upper pole. Dual-lumen catheter was removed and the sensor wire was affixed to the drapes as a safety wire and the extra-stiff wire was used as a working wire. A 12-14 Cypriot 35 cm ureteral access sheath was passed over the extra-stiff wire and under fluoroscopic guidance to the proximal ureter. The flexible disposable ureteroscope was passed through the ureteral access sheath and under direct vision into the left kidney. The upper middle and lower pole calyces were inspected. In the middle pole calyx was a 1 cm stone with several smaller stones. Using a 200 m laser fiber at a power of both fragmentation and dusting the stones were fragmented into 1 mm in size or less. At the end of the fragmentation I did not see any larger fragments. The upper middle and lower pole calyces were again inspected and no further stones were identified. I therefore removed the ureteroscope and the ureteral access sheath while inspecting the entire length of the ureter from the ureteropelvic junction to the ureterovesical junction. The ureteroscope and the ureteral access sheath were then removed. The remaining wire was backloaded through the 21 Cypriot cystoscope which was passed into the bladder. A 6 Cypriot by 24 cm left ureteral stent with no string was passed over the wire and under fluoroscopic guidance into the left renal pelvis. The wire was removed leaving a good curl in the left renal pelvis and a good curl in the bladder. Due to the cystocele was difficult to irrigate stones out of the bladder and for this reason I used a 1.9 Cypriot 9 tipless basket to grab the larger of the fragments and remove them and passed them off the table. The bladder was irrigated and drained. The remainding bladder stones were irrigated out, collected and passed off the table with the other stone specimens. The patient was then returned to the spine position. She was awakened and returned to the recovery room in stable condition.
--- NOTE | 2022-04-28 09:57 | Discharge Plan ---
Discharge Plan Patient/Caregiver Discharge Instructions Activity: increase activity as tolerated and resume usual activities as tolerated Diet: Regular Diet Prescriptions: New hydrocodone-acetaminophen 5-325 mg tablet 1 tab PO Q6H PRN (Reason: pain) Qty: 8 0RF doxycycline hyclate 100 mg capsule 100 mg PO BID Qty: 14 0RF Continued furosemide [Lasix] 20 mg tablet 20 mg PO QAM Qty: 30 0RF potassium chloride 10 mEq tablet extended release 10 meq PO QDAY Qty: 30 0RF methimazole 10 mg tablet 5 mg PO QDAY Qty: 90 1RF rosuvastatin 20 mg tablet 20 mg PO QDAY Qty: 90 1RF pantoprazole 40 mg tablet,delayed release (DR/EC) 40 mg PO QDAY Qty: 90 3RF Eliquis 2.5 mg tablet 2.5 mg PO BID Qty: 180 1RF metoprolol tartrate 25 mg tablet 25 mg PO BID Qty: 180 1RF methenamine hippurate 1 gram tablet 1 g PO HS Qty: 90 1RF metformin 500 mg tablet 500 mg PO BID Qty: 180 1RF lisinopril 20 mg tablet 20 mg PO BID Qty: 180 1RF acetaminophen 500 mg PO PRN PRN (Reason: PAIN) cholecalciferol (vitamin D3) 125 mcg (5,000 unit) capsule See Rx Instructions PO .COMPLEX Rx Instructions: PO; cranberry extract 2 tab PO QDAY (DME) incontinence pad, liner, disp Pad See Rx Instructions .Route Qty: 200 3RF Rx Instructions: As directed ciprofloxacin-dexamethasone [Ciprodex] 0.3-0.1 % drops,suspension 4 drp otic (ear) BID 7 Days Qty: 7.5 0RF memantine 5 mg tablet 5 mg PO QAM Qty: 90 3RF PreserVision AREDS 1 tab PO BID hyoscyamine sulfate [Levsin] 0.125 mg tablet 0.125 mg PO QID PRN (Reason: dyspepsia) Qty: 20 0RF ondansetron 4 mg tablet,disintegrating 4 mg PO Q6H PRN (Reason: nausea and vomiting) Qty: 20 0RF Follow Up Plan Follow up with: Jacob Jacobs DO [Primary Care Provider] - Patient Disposition: Home, Self-Care Prognosis: Fair Discharge Orders: Discharge Order (Routine); Ordered 04/28/22 Ordered By: Lavon Mesa
[2022-04-28] MEDS ORDERED: HYDROcodone/APAP 5/325MG TABLET PO PRN (09:59)
[2022-04-28] MEDS ORDERED: ACETAMINOPHEN 160 MG/5 ML ORAL.SOL PO PRN (11:17)
[2022-04-28] MEDS ORDERED: ACETAMINOPHEN 325 MG TABLET PO PRN (11:30)
[2022-04-28] MEDS ORDERED: 0.9 % SODIUM CHLORIDE 10 ML SYRINGE IV SCH (14:00)
--- NOTE | 2022-04-28 15:23 | XRay Report ---
CLINICAL INFORMATION: Three stones in the distal left ureter resulting in moderate left hydroureter/hydronephrosis. They range up to 4 mm COMPARISON: Abdomen and pelvic CT 04/27/2022 FINDINGS: Left retrograde ureterogram shows filling defects in the distal left ureter compatible with stones. It results in mild left hydroureter/hydronephrosis. A left ureteral stent was successfully placed. Total fluoroscopy time 0.8 minutes. IMPRESSION: Stones in the distal left ureter ranging up to 4 mm. Left ureteral stent was successfully placed Interpreted and Authenticated by: Jacob Cantu 04/28/22
--- NOTE | 2022-04-29 07:24 | EKG ---
[facility] Test Date: 2022-04-27 Pat Name: Virginia Stahl Department: ED Room: Gender: Female Management Developer: : [id number] Requested By: Lavon Mesa Order Number: [id number] Reading MD: Jacob Garcia M.D. Measurements Intervals [place] Rate: 94 P: 56 IN: 165 QRS: -37 QRSD: 91 T: 27 QT: 402 QTc: 503 Interpretive Statements Sinus rhythm Probable left atrial enlargement Left axis deviation Consider anterior infarct Prolonged QT interval Electronically Signed On 04-29-2022 7:24:33 PDT by Jacob Garcia M.D. /[email or web address]/[id number]
[2022-05-07 09:09] LABS: Calculus Weight 0.076 g; Specimen Source KIDNEY
== END 2022-04-28 14:00 | disposition home or self-care (01) ==
LOC: ED 18:27 → MEDSUR 18:27
PROVIDERS: ADMIT Urology; ATTEND Urology